=== PATIENT | female | born 1940 | race Hispanic/Latino ===

== ENCOUNTER 2024-10-14 07:32 | Day surgery (SDC) | payer MEDICARE ==
[2024-10-10 12:33] LABS: CREATININE 1.4 mg/dL (0.5-1.0); POTASSIUM 4.9 mmol/L (3.5-5.1)
[2024-10-10 12:37] LABS: INR 1.07 (0.85-1.15); PROTHROMBIN TIME 11.9 SEC (9.6-11.6)
--- NOTE | 2024-10-10 12:58 | EKG ---
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
[2024-10-10 13:01] LABS: BASOPHILS # (AUTO) 0.03 K/uL (0.00-0.20); BASOPHILS % (AUTO) 0.3 % (0.0-5.0); EOSINOPHILS # (AUTO) 0.17 K/uL (0.00-0.70); EOSINOPHILS % (AUTO) 1.7 % (0.0-8.0); HEMATOCRIT 35.1 % (36-48); IMMATURE GRANULOCYTE ABSOLUTE 0.04 K/uL (0-1); LYMPHOCYTES # (AUTO) 0.8 K/uL (1.0-4.8); MEAN CORPUSCULAR HEMOGLOBIN 32.1 pg (27.0-33.0); MEAN CORPUSCULAR HGB CONC 31.9 g/dL (32.0-36.0); MEAN CORPUSCULAR VOLUME 100.6 fL (79-99); MONOCYTES % (AUTO) 9.6 % (3.0-13.0); NEUTROPHILS # (AUTO) 8.3 K/uL (1.8-7.7); PLATELET COUNT (AUTO) 229 K/uL (130-400); RED BLOOD CELL COUNT(AUTO) 3.49 MIL/uL (4.00-5.50); RED CELL DISTRIBUTION WIDTH 14.2 % (11.0-15.5); WHITE BLOOD COUNT (AUTO) 10.3 K/uL (4.8-10.8)
[2024-10-10 13:21] VITALS: BP 110/65; PULSE 65; RESP 18; TEMP 97.5
--- NOTE | 2024-10-11 12:53 | NUR ---
report reported bun and creat to kathleen mejia. ok to proceed
[2024-10-14] VITALS (8 sets, daily range): BP systolic 94–110; BP diastolic 45–68; PULSE 80–89; RESP 14–15; TEMP 97.1–97.4
[~2024-10-14] VITALS: Ht 162.6 cm; Wt 72.2 kg
[~2024-10-14 07:32] MED LIST: APIX2.5T PO; AREDS PO; ATOR20TA65 PO; BREYNA IH; CARV12.511 PO; CHOL200013 PO; DAPA10TA PO; DOCU-280 PO; DORZ10DR10 OP; LATA2.5D14 OD; PROVENTIL IH; SACU1TAB PO; TORS20TA4 PO
[2024-10-14] MEDS: 0.9%NACL 1000ML 1,000 ML IV SCH (08:57)
[2024-10-14] MEDS ORDERED: ceFAZolin SODIUM 1 GM VIAL ONE (09:19)
[2024-10-14] MEDS ORDERED: LIDOCAINE HCL 1% MDV 50ML VIAL ONE (09:19)
[2024-10-14] MEDS ORDERED: MEPERIDINE-PF 25 MG/ML SYG ONE ×3 (09:20→10:07)
[2024-10-14] MEDS ORDERED: MIDAZOLAM HCL 1 MG/ML 2ML VIAL ONE ×3 (09:20→10:08)
[2024-10-14] MEDS ORDERED: BUPIvacaine/PF 0.25% 30ML VIAL IJ ONE (09:20)
[2024-10-14] MEDS ORDERED: BACITRACIN 1 EACH PACKET TP ONE (10:20)
[2024-10-14] MEDS ORDERED: TRAM50TA4 PO (10:38)
[2024-10-14] MEDS ORDERED: acetaMINOPHEN 500 MG TABLET PO PRN (11:00)
[2024-10-14] MEDS ORDERED: acetaMINOPHEN WITH coDEINE 1 TAB TAB PO PRN (11:00)
== END 2024-10-14 13:00 | disposition home or self-care (01) ==
LOC: DAH 07:32
PROVIDERS: ATTEND Internal Medicine Cardiovascular Disease
DX: Z45.02 Encounter for adjustment and management of automatic implantable cardiac defibrillator (principal); I42.8 Other cardiomyopathies; E78.5 Hyperlipidemia, unspecified; I25.10 Atherosclerotic heart disease of native coronary artery without angina pectoris; I11.0 Hypertensive heart disease with heart failure; I50.22 Chronic systolic (congestive) heart failure; I48.20 Chronic atrial fibrillation, unspecified; J44.89 Other specified chronic obstructive pulmonary disease; I48.21 Permanent atrial fibrillation; Z86.2 Personal history of diseases of the blood and blood-forming organs and certain disorders involving the immune mechanism; Z82.49 Family history of ischemic heart disease and other diseases of the circulatory system; Z79.01 Long term (current) use of anticoagulants; Z68.26 Body mass index [BMI] 26.0-26.9, adult; Z79.899 Other long term (current) drug therapy
CPT/HCPCS: 80048; 85025; 85610; 85730; 36415; 93005; 33264; A4223 ×3; C1882; J0690; J7030; J0665; J2250 ×3; J2175 ×3; J3490; A4215; A6251; A4335; A4222; A4221; A4663; A4216; A6258; A4606; 99156; 99157